=== PATIENT | female | born 2000 | race African-American/Black ===

== ENCOUNTER 2025-03-23 08:39 | Emergency (ER) | payer OTHER ==
[~2025-03-23] VITALS: Ht 165.1 cm; Wt 113.4 kg
[2025-03-23] MEDS: DEXAMETHASONE SOD PHOS 10 MG/1 ML VIAL IV ONE (09:52)
[2025-03-23] MEDS: DIPHENHYDRAMINE HCL INJ 50 MG/ML VIAL IV ONE (09:52)
[2025-03-23] MEDS: METOCLOPRAMIDE HCL 10 MG/2ML VIAL IV ONE (09:52)
[2025-03-23] MEDS: SODIUM CHLORIDE 0.9% 1000ML 1,000 ML IV STA (09:52)
[2025-03-23] MEDS: KETOROLAC TROMETHAMINE 30 MG/ML VIAL IV STA (09:53)
[2025-03-23] MEDS ORDERED: PREDNISONE50 MG PO (10:40)
[2025-03-23] MEDS ORDERED: FIORICET 50-301 EACH PO (10:40)
[2025-03-23] MEDS ORDERED: ONDANSETRON ODT4 MG PO (10:40)
[2025-03-23 10:55] VITALS: PULSE 75; RESP 16; TEMP 97.9; O2SAT 99
== END 2025-03-23 10:59 | disposition home or self-care (01) ==
LOC: ER 09:11
DX: G43.909 Migraine, unspecified, not intractable, without status migrainosus (principal); D64.9 Anemia, unspecified; R53.1 Weakness
CPT/HCPCS: 99283; J1100; J1200; J1885; J2765; J7030